=== PATIENT | male | born 1985 | race Caucasian/White ===

== ENCOUNTER 2019-10-27 15:03 | Emergency (ER) | payer SELFPAY ==
[2019-10-27 15:21] VITALS: BP 151/84; PULSE 66; RESP 16; TEMP 37.1; O2SAT 99
--- NOTE | 2019-10-27 16:08 | ED.GENADULT ---
HPI - General Adult General Chief complaint: Eye Problems Stated complaint: eye problems Time Seen by Provider: 10/27/19 16:08 Source: patient and RN notes reviewed Mode of arrival: ambulatory Limitations: no limitations History of Present Illness HPI narrative: 34-year-old male presents with complains of pain in left eye with light sensitivity for 4.5 hours. Manas says he accidentally hit himself in the eye with the handle of a shovel this morning at approximately at 10:30. Mild redness, clear (teary) drainage. Symptoms worsening throughout the day. No exacerbating factors. Relieving factors is closing eyes. Denies blurred vision, double vision, or pain of eye with movement. Denies fever or chills. The patient reports he have not been diagnosed with COVID-19. The patient reports he is not waiting for the results of a COVID-19 lab test. The patient reports he do not have fever, chills, weakness, fatigue, myalgia, or facial swelling. The patient reports he do not have a new or worsening cough or shortness of breath. Denies chest pain. The patient reports he do not have any rhinorrhea, congestion, sore throat, nausea, vomiting, abdominal pain, and diarrhea. Tolerating po intake well. Denies recent traveling. Denies concerns for COVID-19 or exposures been home with limited outdoor exposure except for essential household needs, work, and return home. At this time, patient is not suspected of having COVID-19. Some parts of this dictation were generated by voice recognition software and may contain typographical and/or grammatical inaccuracies. Severity scale (1-10): 9 Related Data Allergies Allergy/AdvReac Type Severity Reaction Status Date / Time No Known Allergies Allergy Unverified 10/27/19 15:36 Review of Systems Review of Systems: Narrative: CONSTITUTIONAL: Denies fever, chills, sweats. EYES: Denies visual changes. Complains of LT eye pain light sensitivity and clear (teary) discharge. ENT: Denies rhinorrhea, congestion, sore throat, otalgia. CARDIOVASCULAR: Denies chest pain, palpitations, edema. RESPIRATORY: Denies dyspnea, wheezing, cough. GASTROINTESTINAL: Denies abdominal pain, nausea, vomiting, diarrhea. GENITOURINARY: Denies dysuria, hematuria, abnormal discharge. SKIN: Denies rash or itching. MUSCULOSKELETAL: Denies acute back pain, joint pain, or myalgia. NEUROLOGIC: Denies numbness or focal weakness. PSYCHIATRIC: Denies anxiety or depression. All other systems reviewed are negative, except as documented in HPI and below. [facility] Past Medical History Medical History (Updated 11/03/19 @ 08:28 by ANTON Bhat) No significant past medical history Surgical History Surgical History (Updated 11/03/19 @ 08:28 by ANTON Bhat) No significant past surgical history Family History Family History (Updated 11/03/19 @ 08:29 by ANTON Bhat) Father Alive and well Mother Hypertension Social History Social History (Updated 11/03/19 @ 08:30 by ANTON Bhat) Smoking status: Current every day smoker Smokeless tobacco user: chewing tobacco Second hand tobacco smoke exposure: No Additional smoking assessment comments: chew for 13 years Alcohol intake: current Substance use: never Living arrangements: with family Occupation/Education: occupation Gender identity (if verbalized by the patient): Male Sexual Orientation (if Verbalized by the Patient): Straight or Heterosexual Comments At time of signature, I have reviewed and agree with nursing past medical, surgical, social, and family history. Please see nursing chart for further information. There is no relevant family history pertinent to the presenting complaint. Exam Narrative: Exam Narrative: GENERAL: This is a well-nourished, well-developed patient, in no apparent distress. HEAD: normocephalic, atraumatic. EYES: PERRL. Sclera clear/white to RT eye only. LT eye sclera tania and clear
[2019-10-27 16:29] VITALS: BP 126/78
== END 2019-10-27 16:29 | disposition home or self-care (01) ==
PROVIDERS: Emergency Provider Nurse Practitioner Family
DX: S05.01XA Injury of conjunctiva and corneal abrasion without foreign body, right eye, initial encounter (principal); X58.XXXA Exposure to other specified factors, initial encounter
CPT/HCPCS: 99213; A9270; G0463

== ENCOUNTER 2021-10-17 03:10 | Emergency (ER) | payer OTHER, SELFPAY ==
[2021-10-17 03:11] VITALS: BP 154/85; PULSE 96; RESP 16; TEMP 36.4; O2SAT 95
--- NOTE | 2021-10-17 03:31 | ED.GENADULT ---
HPI - General Adult General Chief complaint: Wound/Laceration Stated complaint: left shoulder injury Time Seen by Provider: 10/17/21 03:22 History of Present Illness HPI narrative: Patient 56-year-old gentleman who presents the emergency department with chief complaint of left shoulder injury. The patient reports he was carrying a toilet that was broken and it struck his left shoulder and he has a laceration in his left shoulder area. The patient reports it was bleeding reports no numbness or tingling reports full range of motion distal to the injury. The patient reports he is unsure of his last tetanus shot. Patient denies any other injuries Related Data Home Medications Medication Instructions Recorded Confirmed No Home Medications 10/17/21 Allergies Allergy/AdvReac Type Severity Reaction Status Date / Time No Known Allergies Allergy Unverified 10/17/21 03:15 Review of Systems Review of Systems: A 10 system review of systems was completed on the patient and is negative except for what is stated in the HPI. Nursing and ancillary documentation was reviewed. PMFSH Past Medical History Medical History No significant past medical history Surgical History Surgical History No significant past surgical history Family History Family History Father Alive and well Mother Hypertension Social History Social History Smoking status: Current every day smoker Smokeless tobacco user: chewing tobacco Second hand tobacco smoke exposure: No Additional smoking assessment comments: chew for 13 years Alcohol intake: current Substance use: never Gender identity (if verbalized by the patient): Male Sexual Orientation (if Verbalized by the Patient): Straight or Heterosexual Exam Narrative: GENERAL: Well-appearing, well-nourished, and in no acute distress. HEAD: Normocephalic, atraumatic. EYES: PERRLA and EOMI. ENT: Nares clear, no rhinorrhea or epistaxis. Mucous membranes moist. NECK: Supple. CHEST: Clear to auscultation. No respiratory distress. HEART: Regular rate and rhythm. No murmur heard. Normal peripheral pulses. ABDOMEN: Soft, nontender, nondistended, normal active bowel sounds. EXTREMITIES: Normal range of motion. No edema. There is a laceration present in the left shoulder area approximately 6 cm in length SKIN: Warm, dry, no rash. NEURO: No focal deficits. Alert and oriented x3. PSYCH: Normal mood and affect. Course Vital Signs Vital signs: Vital Signs Temperature 36.4 C 10/17/21 03:11 Pulse Rate 96 10/17/21 03:11 Respiratory Rate 16 10/17/21 03:11 Blood Pressure 154/85 H 10/17/21 03:11 Pulse Oximetry 95 10/17/21 03:11 Oxygen Delivery Room Air 10/17/21 03:11 Temperature 36.4 C 10/17/21 03:11 Pulse Rate 96 10/17/21 03:11 Respiratory Rate 16 10/17/21 03:11 Blood Pressure 154/85 H 10/17/21 03:11 Pulse Oximetry 95 10/17/21 03:11 Oxygen Delivery Room Air 10/17/21 03:11 Procedures Laceration Laceration 1: Date: 10/17/21 Time: 03:49 Site: upper extremity Side (If applicable): left Size (cm): 6 Description: linear Depth: simple, single layer Local Anesthetic: lidocaine 1% and with epi Amount of anesthesia used (mL): 5 Pre-repair: wound explored and irrigated ====== Skin Level ====== Skin layer closed with: evy Number of sutures: 14 ====== Subcutaneous Layer ====== ====== Muscle Layer ====== ====== Tendon Layer ====== Medical Decision Making Vital Signs Vital Signs: Vital Signs Temperature 36.4 C 10/17/21 03:11 Pulse Rate 96 10/17/21 03:11 Respiratory Rate 16 10/17/21
[2021-10-17] MEDS: TETANUS,DIPHTHERIA,AC PERTUSSIS ADULT (0.5 ML) BOOSTRIX IM (03:32)
[2021-10-17] MEDS: LIDO 1%/EPINEPHRINE 1:100,000 20 ML VIAL 10 ML INFILTRATE (03:32)
== END 2021-10-17 04:30 | disposition home or self-care (01) ==
PROVIDERS: Emergency Provider Emergency Medicine
DX: S41.012A Laceration without foreign body of left shoulder, initial encounter (principal); Z23 Encounter for immunization; F17.220 Nicotine dependence, chewing tobacco, uncomplicated; W26.8XXA Contact with other sharp object(s), not elsewhere classified, initial encounter
CPT/HCPCS: 12002; 90471; 90715; 99282

== ENCOUNTER → 2021-12-15 16:01 | Outpatient (CLI) | payer OTHER, SELFPAY ==
--- NOTE | ~2021-12-15 | MR_ITS ---
EXAMINATION: MR lumbar spine wo con DATE: 12/15/2021 16:33 INDICATION: Low back pain. TECHNIQUE: Magnetic resonance imaging (MRI) of the lumbar spine was performed without intravenous con trast. Sequences included sagittal T2-weighted FSE, sagittal T2-weighted FS FSE, sagittal T1-weighted FSE, and axial T2-weighted FSE. COMPARISON: None FINDINGS: There is 5 degrees dextrocurvature of thoracolumbar spine. There are Schmorl's nodes at mos t levels. There is mild chronic anterior wedging of T12 and L1 vertebral bodies, likely physiologic. There is severely decreased disc height at L5-S1 with endplate remodeling. The distal spinal cord sig nal intensity is normal. The conus medullaris is at L1-L2. The following disc levels are specifically discussed: L1-L2: The disc does not extend beyond the endplate margin. There is mild bilateral facet joint osteo arthritis. There is no neural foraminal stenosis. There is no central canal stenosis. L2-L3: The disc does not extend beyond the endplate margin. There is mild bilateral facet joint osteo arthritis. There is no neural foraminal stenosis. There is no central canal stenosis. L3-L4: The disc is bulging. There is mild bilateral facet joint osteoarthritis. There is mild bilater al neural foraminal stenosis. There is mild central canal stenosis. L4-L5: The disc is bulging. There is mild left facet joint osteoarthritis. There is mild bilateral ne ural foraminal stenosis. There is mild central canal stenosis. L5-S1: The disc is bulging and has an annular fissure. There is moderate right and mild left facet corby int osteoarthritis. There is mild bilateral neural foraminal stenosis. There is mild central canal st enosis. IMPRESSION: 1. Severe spondylosis at L5-S1 and mild spondylosis at other levels. Reviewed, dictated and finalized at location A.
== END ==
PROVIDERS: PCP Physician Assistant; Visit Provider Physician Assistant
DX: M54.50 Low back pain, unspecified (principal); M47.816 Spondylosis without myelopathy or radiculopathy, lumbar region
CPT/HCPCS: 72148

== ENCOUNTER 2022-10-02 22:00 | Emergency (ER) | payer OTHER, SELFPAY ==
--- NOTE | ~2022-10-02 | CT_ITS ---
EXAMINATION: CT orbit BI wo con DATE: 10/02/2022 22:39 INDICATION: Right eye injury TECHNIQUE: Computed tomography (CT) of the orbits was performed without intravenous contrast. The dos e-length product (DLP) was 145.09 mGy-cm. Automated exposure control and iterative reconstruction carl hnique were employed. COMPARISON: None. FINDINGS: There is right periorbital and preseptal soft tissue swelling. The globes are intact. No fa cial fracture is identified. There is a polyp or mucous retention cyst of the left maxillary sinus. T here is mild mucosal thickening of the ethmoidal air cells. IMPRESSION: 1. Right periorbital and preseptal soft tissue swelling without definite intraorbital abnormality. Reviewed, dictated and finalized at location A. IMPRESSION: 1. Right periorbital and preseptal soft tissue swelling without definite intrao rbital abnormality.
[2022-10-02 22:02] VITALS: BP 159/93; PULSE 90; RESP 16; TEMP 36.9; O2SAT 100
--- NOTE | 2022-10-02 22:22 | PC.NURSE ---
pt was playing with [employer]works and hit his eye. R eye is swollen,red,bleeding and draining. pt has partial visual acuity noted. pt sts I really can t see very well.
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
--- NOTE | 2022-10-02 23:04 | PC.NURSE ---
Report called to Monet at [facility]. IV established 20g LAC. PT refused medications. Eye patch placed with Kerlix. PT education was given on the importance of no pressure on eye. pt is getting nervous about his eye
[2022-10-02 23:22] VITALS: BP 146/95; PULSE 77; RESP 18; TEMP 36.9; O2SAT 100
== END 2022-10-03 00:01 | disposition short-term general hospital (02) ==
PROVIDERS: Emergency Provider Physician Assistant; PCP Physician Assistant
DX: S05.91XA Unspecified injury of right eye and orbit, initial encounter (principal); F17.220 Nicotine dependence, chewing tobacco, uncomplicated; W39.XXXA Discharge of firework, initial encounter; W22.8XXA Striking against or struck by other objects, initial encounter
CPT/HCPCS: 70480; 99285

== ENCOUNTER 2024-06-05 09:18 | Outpatient (CLI) | payer OTHER, SELFPAY ==
--- OUTSIDE RECORDS SUMMARY | 2024-06-05 10:05 | XMS_ITS | Referral Summary ---
Author Organization [facility] [employer] Address [address] [place] [address] Care Team Providers Care Brick Tosser Name Role Phone Lai Thomas MD Primary Care Provider [phone]- [phone] Source Comments [facility] [employer],non-owned Affiliates and Associated Physician Practices is amultiple site organization consisting of ambulatory clinics and hospital sitesin [place], [place], [place] and [place]. This disclosure is being madepursuant to the Care Everywhere program and may not contain all information available regarding this patient. Last updated 17.[employer] Allergies No known active allergies Medications Be aware that medications may not be up to date on this document. Always verify current medications with the patient. No known medications Active Problems No known active problems Social History Tobacco Use Types Packs/Day Years Used Date Smoking Tobacco: Former Cigarettes Smokeless Tobacco: Current Chew Tobacco Cessation:Ready to Q uit: Not Asked; Counseling Given: Not Answered Sex and Gender Information Value Date Recorded Sex Assigned at Not on file Gender Identity Not on file Sexual Orientation Not on file Last Filed Vital Signs Vital Sign Reading Time Taken Comments Blood Pressure 131/86 10/03/2022 12:19 AM CDT Pulse 74 10/03/2022 12:19 AM CDT Temperature 37.3 C (99.2 F) 10/03/2022 12:19 AM CDT Respiratory Rate 17 10/03/2022 12:19 AM CDT Oxygen Saturation 96% 10/03/2022 12:19 AM CDT Inhaled Oxygen Concentration - - Weight 95.3 kg (210 lb) 10/03/2022 12:19 AM CDT Height 190.5 cm (6' 3 ) 10/03/2022 12:19 AM CDT Body Mass Index 26.25 10/03/2022 12:19 AM CDT Plan of Treatment Not on file Care Teams Brick Tosser Relationship Specialty Start Date End Date Lai Thomas MD [address] [place] [id number] PCP - General Family Medicine 10/03/22
--- OUTSIDE RECORDS SUMMARY | 2024-06-05 10:05 | XMS_ITS | Encounter Summary ---
Author Organization [facility] Address [address] [place] [address] Care Team Providers Care Branch Specialist Name Role Phone Lai Thomas MD Primary Care Provider [phone]- [phone] Encounter Details Date Type Department Care Team (Late st Contact Info) Description 10/03/2022 Ophth Exam [facility] - Ophthalmology [address] [place] [id number] Colten Blanco, DO [address] [facility] [place] [place] [id number] Social History Tobacco Use Types Packs/Day Years Used Date Smoking Tobacco: Never Assessed Sex and Gender Information Value Date Recorded Sex Assigned at Not on file Gender Identity Not on file Sexual Orientation Not on file documented as of this encounter Plan of Treatment Not on file documented as of this encounter Visit Diagnoses Not on filedocumented in this encounter Care Teams Branch Specialist Relationship Specialty Start Date End Date Lai Thomas MD [facility] [place] [phone] PCP - General Family Medicine 10/03/22 documented as of this encounter
--- OUTSIDE RECORDS SUMMARY | 2024-06-05 10:05 | XMS_ITS | Clinical Summary ---
Author Organization [facility] [employer] Address [address] [place] [address] Care Team Providers Care Garnett Machine Operator Name Role Phone Lai Thomas MD Primary Care Provider [phone]- [phone] Source Comments [facility] [employer],non-owned Affiliates and Associated Physician Practices is amultiple site organization consisting of ambulatory clinics and hospital sitesin [place], [place] and [place]. This disclosure is being madepursuant to the Care Everywhere program and may not contain all information available regarding this patient. Last updated 17.[employer] Allergies No known active allergies Medications Be [...] 10/03/2022 12:19 AM CDT Plan of Treatment Health Maintenance Due Date Last Done Comments HIV SCREENING 2002 HEPATITIS C SCREENING 03/06/2005 DTAP/TDAP/TD VACCINES (1 - Tdap) 2006 HEPATITIS B VACCINE (1 of 3 - 19+ 3-dose series) 2006 COVID-19 VACCINE (1 - 2023-2 5 season) 2023 INFLUENZA VACCINE (#1) 2023 DEPRESSION SCREENING 04/04/2024 ZOSTER VACCINE (1 of 2) 2037 HIB VACCINE Aged Out No longer eligi ble based on patient's age to complete this topic HPV VACCINE Aged Out No longer eligi ble based on patient's age to complete this topic MENINGOCOCCAL (Group B) VACCINE Aged Out No longer eligible based on patient's age to complete this topic MENINGOCOCCAL VACCINE Aged Out No caleb maury eligible based on patient's age to complete this topic PNEUMOCOCCAL VACCINE Aged Out No long er eligible based on patient's age to complete this topic Care Teams Garnett Machine Operator Relationship Specialty Start Date End Date Lai Thomas MD [facility] [place] [id number] PCP - General Family Medicine 10/03/22
--- OUTSIDE RECORDS SUMMARY | 2024-06-05 10:05 | XMS_ITS | Patient Health Summary ---
Author Organization [facility] [employer] Address [address] [place] [address] Care Team Providers Care Operations Lead Name Role Phone Lai Thomas MD Primary Care Provider [phone] Note from [facility],non-owned Affiliates and Associated Physician Practices is amultiple site organization consisting of ambulatory clinics and hospital sitesin [place], [place], [place]. This disclosure is being madepursuant to the Care Everywhere program and may not contain all information available regarding this patient. Last updated 17.[facility] [employer] Allergies No known active allergies Medications Be [...] Mass Index 26.25 10/03/2022 12:19 AM CDT Procedures * [facility](Performed 10/03/2022) * PT-INR [facility](Performed 10/03/2022) * COMPREHENSIVE METABOLIC PANEL(Performed 10/03/2022) * CBC W AUTO DIFFERENTIAL(Performed 10/03/2022) Results * [facility] (10/03/2022 12:53 AM CDT) APTT 29.1 23.0 - 38.4 Seconds 10/03/2022 1:25 AM CDT [facility] Comment:Suggested therapeuti c range for full dose I.V. unfractionated heparin therapy for venous thromboembolism is 71 to 109 seconds. Blood BLOOD SPECIMEN / Unknown Venipuncture / Unknown 10/03/2022 12:53 AM CDT 10/03/2022 1:02 AM CDT Monet Celaya MD LAB - COAGULATION OR DERABLES Performing Organization Address [facility] Co de Phone Number [address] [address], [facility] [phone] * PT-INR [facility] (10/03/2022 12:53 AM CDT) Pathologist [facility] PT 13.4 12.1 - 14.8 Seconds 10/03/2022 1:25 AM T [facility] INR 1.0 See Comment 10/03/2022 1:25 AM T [facility] Comment:The suggested therap eutic range for standard coumadin (warfarin) therapy is an INR of 2.0-3.0. For high-risk patients (Mechanical Mitral Valve Prosthesis, etc.), the suggested prophylactic therapeutic range is an INR of 2.5-3.5. Blood BLOOD SPECIMEN / Unknown Venipuncture / Unknown 10/03/2022 12:53 AM CDT 10/03/2022 1:02 AM CDT Monet Celaya MD LAB - COAGULATION OR DERABLES Performing Organization Address [facility] Co de Phone Number [address] [phone] [phone] * (ABNORMAL) CBC W AUTO DIFFERENTIAL (10/03/2022 12:53 AM [facility]) WBC 11.5(H) 3.5 - 10.5 10 3/uL 10/03/2022 1:09 AM [facility] RBC 4.94 4.30 - 5.70 10 6/uL 10/03/2022 1:09 AM [facility] Hemoglobin 14.5 12.0 - 17.6 g/dL 10/03/2022 1:09 AM [facility] Hematocrit 43.1 35.2 - 51.7 % 10/03/2022 1:09 AM [facility] MCV 87.2 80.7 - 98.3 fL 10/03/2022 1:09 AM [facility] MCH 29.4 26.7 - 34.0 pg 10/03/2022 1:09 AM [facility] MCHC 33.6 30.8 - 35.9 g/dL 10/03/2022 1:09 AM [facility] RDW-SD 41.8 36.0 - 50.0 fL 10/03/2022 1:09 AM [facility] RDW-CV 13.2 11.2 - 14.8 % 10/03/2022 1:09 AM [facility] Platelet Count 248 150 - 400 10 3/uL 10/03/2022 1:09 AM [facility] MPV 9.9 9.4 - 12.9 fL 10/03/2022 1:09 AM [facility] nRBC Absolute 0.00 0 10 3/uL 10/03/2022 1:09 AM [facility] nRBC Auto 0.0 0 /100 WBC 10/03/2022 1:09 AM [facility] Neutrophils % 79.0(H) 35.0 - 70.0 % 10/03/2022 1:09 AM [facility] Lymphocytes % 12.2(L) 20.0 - 43.0 % 10/03/2022 1:09 AM [facility] Monocytes % 6.5 5.0 - 13.0 % 10/03/2022 1:09 AM [facility] Eosinophils % 1.7 0.0 - 6.0 % 10/03/2022 1:09 AM [facility] Basophil % 0.3 0.0 - 2.0 % 10/03/2022 1:09 AM [facility] Neutrophils Absolute 9.07(H) 1.60 - 7.00 10 3/uL 10/03/2022 1:09 AM [facility] Lymphocyte Absolute 1.40 1.10 - 3.90 10 3/uL 10/03/2022 1:09 AM [facility] Monocytes Absolute 0.75 0.26 - 1.07 10 3/uL 10/03/2022 1:09 AM [facility] Eosinophils Absolute 0.20 0.00 - 0.47 10 3/uL 10/03/2022 1:09 AM [facility] Basophils Absolute 0.04 0.00 - 0.08 10 3/uL 10/03/2022 1:09 AM [facility] Immature Granulocytes % 0.3 0.0 - 1.0 % 10/03/2022 1:09 AM [facility] Immature Granulocytes Absolute 0.04 10/03/2022 1:09 AM [facility] Blood BLOOD SPECIMEN / Unknown Venipuncture / Unknown 10/03/2022 12:53 AM CDT 10/03/2022 1:02 AM T Monet Celaya MD LAB - HEMATOLOGY ORD ERABLES Performing Organization Address City/State/[facility] Co de Phone Number [address] [address], [facility] [phone] * (ABNORMAL) COMPREHENSIVE METABOLIC PANEL (10/03/2022 12:53 AM CDT) BUN 10 7 - 26 mg/dL 10/03/2022 1:29 AM [facility] Creatinine 1.17(H) 0.71 - 1.16 mg/dL 10/03/2022 1:29 AM [facility] Sodium 140 136 - 145 mmol/L 10/03/2022 1:29 AM [facility] Potassium 3.9 3.5 - 4.5 mmol/L 10/03/2022 1:29 AM [facility] Chloride 109(H) 98 - 107 mmol/L 10/03/2022 1:29 AM [facility] CO2 25 22 - 29 mmol/L 10/03/2022 1:29 AM [facility] Glucose 101 70 - 115 mg/dL 10/03/2022 1:29 AM [facility] Calcium 9.2 8.4 - 10.2 mg/dL 10/03/2022 1:29 AM [facility] Protein Total 7.2 6.0 - 8.3 g/dL 10/03/2022 1:29 AM [facility] Albumin 4.3 3.4 - 5.0 g/dL 10/03/2022 1:29 AM [facility] Bilirubin Total 0.4 0.2 - 1.2 mg/dL 10/03/2022 1:29 AM [facility] Alkaline Phosphatase 57 40 - 150 U/L 10/03/2022 1:29 AM [facility] ALT 24 5 - 55 U/L 10/03/2022 1:29 AM [facility] AST 19 5 - 34 U/L 10/03/2022 1:29 AM [facility] Anion Gap 10 8 - 18 10/03/2022 1:29 AM [facility] BUN/Creatinine Ratio 9 7 - 23 10/03/2022 1:29 AM [facility] Osmolality Calculated 289 270 - 300 mOsm/kg 10/03/2022 1:29 AM [facility] Albumin/Globulin Ratio 1.5 1.1 - 2.3 10/03/2022 1:29 AM [facility] eGFR by CKD-EPI 83(L) >=90 mL/min/1.7 3 m2 10/03/2022 1:29 AM [facility] Blood BLOOD SPECIMEN / Unknown Venipuncture / Unknown 10/03/2022 12:53 AM CDT 10/03/2022 1:02 AM [facility] Monet Celaya MD LAB - CHEMISTRY ORDE RABLES [facility] Organization Address City/State/ZIP Co de Phone Number [facility] [address] [place] [address], [facility] [phone] Care Teams Operations Lead Relationship Specialty Start Date End Date Lai Thomas MD [address] [place] [phone] PCP - General Family Medicine 10/03/22
--- NOTE | 2024-06-23 20:08 | WPDHOMESLEEP ---
Sleep Study - Home Unattended Date of Study: 06/05/24 Ordering Provider: ANTON Enriquez-Larissa Interpreting Provider: Gema Fields MD Home Sleep Study Type: Watch PAT Height: 1.91 m Weight: 100.698 kg Body Mass Index: 27.7 Neck Circumference (inches): 17 [place]: 0 Reason for Sleep Study Loud snoring, choking and gasping Sleep History Manas Banegas is a 39-year-old male with a history of loud snoring, choking, and gasping during sleep. He does not report witnessed apneas. He does have difficulty breathing when he sleeps on his back. He wakes with a morning headache. He also wakes with a sore throat and dry mouth. He does not have heartburn at night nor does he awaken at night to urinate. He does not have problems falling asleep or staying asleep. He does not wake up too early. He does not take any sedatives or hypnotics. He does not clench his teeth or grind his teeth. He does not kick excessively at night or have restless feelings in his legs. He does not indicate that he has drowsy driving. Normal bedtime is 9:30 p.m. falling asleep within 15 minutes. He spends 8-1/2 hours in bed. He keeps a similar schedule on his days off. He does take planned naps. A typical nap will last less than an hour. He does not generally feel much improvement after a nap. [facility] Past Medical History Medical History Recurrent sinus infections Fatigue Acute anxiety No significant past medical history Surgical History Surgical History No significant past surgical history Family History Family History Father Alive and well Mother Hypertension Social History Social History Smoking status: Current every day smoker Smokeless tobacco user: chewing tobacco Second hand tobacco smoke exposure: No Additional smoking assessment comments: chew for 13 years Alcohol intake: current Substance use: never Living arrangements: with family Occupation/Education: occupation Gender identity (if verbalized by the patient): Male Sexual Orientation (if Verbalized by the Patient): Straight or Heterosexual Medications Home Medications ?Medication ?Instructions ?Recorded ?Confirmed ?Type cholecalciferol (vitamin D3) 125 125 mcg PO DAILY 08/18/23 02/07/24 History mcg (5,000 unit) capsule fluticasone propionate 50 2 spray intranasal DAILY chronic 11/01/23 02/07/24 Rx mcg/actuation nasal seasonal allergic rhinitis #48 mL spray,suspension (Flonase Allergy Relief) vitamin B complex 1 tablet PO DAILY 11/01/23 02/07/24 History amoxicillin 875 mg-potassium 1 tablet PO BID #20 tabs 02/07/24 02/07/24 Rx clavulanate 125 mg tablet prednisone 50 mg tablet 50 mg PO DAILY #5 tabs 02/07/24 02/07/24 Rx fluoxetine 20 mg tablet 30 mg (1.5 x 20 mg) PO DAILY #45 05/24/24 Rx tabs Sleep Procedure The sleep study was completed using [employer]T a technically adequate device with seven channels: peripheral arterial tone, actigraphy, body position, snore, respiratory movement, pulse oximetry, sleep staging, and heart rate. Prior to using the device, the patient received verbal and written instructions for its application and was provided with the help desk phone number for additional telephonic instruction with 24-hour availability of qualified personnel to answer questions. Sleep Architecture The total recording time is 7 hrs, 41 min. The total sleep time is 5 hrs, 43 min. Sleep latency is 19 minutes. REM latency is 111 minutes. The patient had 23 episodes of waking. Sleep architecture shows 10.8% deep sleep, 74.8% light sleep, and 14.4% stage REM. The patient spent 74.8% of total sleep time in the supine position. Sleep efficiency was 74%. Respiratory Analysis The overall AHI (pAHI 3%:) is 25.1. The central AHI is 5.3. The AHI was 26.6 in NREM and 17.2 in REM sleep. The AHI was 30.5 in Supine and 8.5 in Non-supine sleep. Percent of Krunal Jeffrey respirations is 0%. Oximetry Data The oxygen desaturation index (LACEY 4%:) is 12.2. The mean saturation is 96%, and the lowest saturation is 83%. Time spent with saturation < 88% is 0.2 minutes. Snoring Profile Snoring average intensity is 41 dB. The patient snored above 45 decibels for 13.6 minutes, 4.0% of sleep time. Cardiac Profile The average pulse rate is 65 beats per minutes. The lowest pulse rate is 50 bpm. The highest pulse rate is 97 bpm. The cardiac rhythm analysis in sleep does not show suspected atrial fibrillation. Assessment and Plan Assessment and Plan (1) Obstructive sleep apnea: Code(s): G47.33 - Obstructive sleep apnea (adult) (pediatric) Status: Acute Assessment and Plan: This home sleep test using WatchPat on 06/05/2024 shows moderate obstructive sleep apnea using a 3% criteria, the overall apnea-hypopnea index is 25.1, the central apnea-hypopnea index is 5.3. Events were worse in the supine position with a supine AHI of 30.5. The lowest desaturation was 83% with 0.2 minute spent below 88%. Snoring was moderate. This patient is a candidate for CPAP titration in the sleep lab. Auto PAP would be contraindicated given the elevated central apnea index of 5.3. Auto PAP can worsen central apnea. The patient should have a dedicated CPAP titration in the sleep lab with a sleep aid available, to use if needed, at the beginning of the sleep test. This should not be taken at home. Consider Ambien 5-10 mg or Lunesta 2-3 mg. The patient should not nap on the day of the test. Patient should have 10-12 hours of wakefulness prior to presenting for the sleep test. (2) Central sleep apnea: Code(s): G47.31 - Primary central sleep apnea Status: Acute Assessment and Plan: The central apnea-hypopnea index is 5.3, normal is less than 5.0. The patient does not have a history of heart disease. Central sleep apnea is often seen in the setting of congestive heart failure, strokes, opioid and alcohol dependence. The patient does not have a history of any of these. Data The data obtained during this sleep study is adequate for interpretation. Certification This sleep study has been reviewed by a board certified sleep medicine physician.
[2024-06-26 18:17] VITALS: BMI 27.7
== END 2024-06-06 15:40 | disposition home or self-care (01) ==
LOC: ANHCSM 09:21
PROVIDERS: PCP Nurse Practitioner Family; Visit Provider Nurse Practitioner Family
DX: G47.33 Obstructive sleep apnea (adult) (pediatric) (principal); G47.31 Primary central sleep apnea
CPT/HCPCS: 95800